=== PATIENT | female | born 1990 | race Two or more races ===

== ENCOUNTER 2018-05-03 20:43 | Emergency (ER) | payer OTHER ==
[2018-05-03 20:52] VITALS: BP 147/105; PULSE 90; TEMP 98.2; BMI 32.5
[2018-05-03] MEDS ORDERED: ACETAMINOPHEN 325 MG TABLET (FP) PO ONE (21:33)
[2018-05-03] MEDS ORDERED: ACETAMINOPHEN 325 MG TABLET (FP) ONE (21:37)
[2018-05-03] MEDS ORDERED: IBUPROFEN 400 MG TABLET (FP) PO ONE ×2 (22:08→22:12)
--- NOTE | 2018-05-03 22:29 | PDOC ---
History of Present Illness - General Chief Complaint: Injury Stated Complaint: ANKLE PAIN Time Seen by Provider: 05/03/18 20:53 History Source: Patient Exam Limitations: No Limitations Past History - Past Medical History Allergies/Adverse Reactions: Allergies Allergy/AdvReac Type Severity Reaction Status Date / Time Penicillins Allergy Verified 05/03/18 20:52 Home Medications: Ambulatory Orders Crutch 1 each MC DAILY #1 each 05/03/18 COPD: No - Reproductive History (#): 1 Para: 0 - Suicide/Smoking/Psychosocial Hx Smoking History: Never smoked Have you smoked in the past 12 months: No Information on smoking cessation initiated: No Hx Alcohol Use: No Drug/Substance Use Hx: No Substance Use Type: None *Physical Exam - Vital Signs Last Vital Signs Temp Pulse Resp BP Pulse Ox 98.2 F 90 16 147/105 H 100 05/03/18 20:50 05/03/18 20:50 05/03/18 20:50 05/03/18 20:50 05/03/18 20:50 - Physical Exam General Appearance: No: Apparent Distress Respiratory/Chest: positive: Lungs Clear, Normal Breath Sounds. negative: Respiratory Distress Cardiovascular: positive: Regular Rhythm, Regular Rate, S1, S2. negative: Murmur Musculoskeletal: positive: Decreased Range of Motion, Other (+Swelling along R lateral malleolus with TTP along site, no ecchymosis, pulses intact RLE, normal skin color) Extremity: positive: Normal Capillary Refill Integumentary: positive: Normal Color Moderate Sedation - Procedure Monitoring Vital Signs: Procedure Monitoring Vital Signs Temperature 98.2 F 05/03/18 20:50 Pulse Rate 90 05/03/18 20:50 Respiratory Rate 16 05/03/18 20:50 Blood Pressure 147/105 H 05/03/18 20:50 O2 Sat by Pulse Oximetry (%) 100 05/03/18 20:50 ED Treatment Course - ADDITIONAL ORDERS Additional order review: Laboratory Results 05/03/18 12:19 Urine HCG, Qual Negative - RADIOLOGY Radiology Studies Ordered: Category Date Time Status ANKLE & FOOT-RIGHT* [RAD] Stat Radiology 05/03/18 21:39 Taken - Medications Given in the ED: ED Medications Discontinued Medications Generic Name Dose Route Start Last Admin Trade Name Freq PRN Reason Stop Dose Admin Acetaminophen 650 mg 05/03/18 21:33 05/03/18 21:43 Tylenol - PO 05/03/18 21:34 650 mg ONCE ONE Administration Ibuprofen 800 mg 05/03/18 22:08 05/03/18 22:13 Motrin - PO 05/03/18 22:09 800 mg ONCE ONE Administration Medical Decision Making - Medical Decision Making 27 y/o F presents s/p twisting her R ankle while getting her foot caught in a hole in the road. Denies head/neck trauma, LOC, numbness/tingling. R ankle/foot xrays reviewed with no fracture noted RLE neurovascularly intact Airsplint applied Referred to ortho Stable for d/c 05/03/18 22:23 *DC/Admit/Observation/Transfer Diagnosis at time of Disposition: Right ankle sprain - Discharge Dispostion Disposition: HOME Condition at time of disposition: Stable Decision to Admit order: No - Prescriptions Prescriptions: Crutch 1 each MC DAILY #1 each - Referrals Referrals: Yoan Salomon MD [Primary Care Provider] - 3 days Noel Guevara MD [Staff Physician] - 3 days - Patient Instructions Printed Discharge Instructions: DI for Ankle Sprain Additional Instructions: Thank you for choosing [facility]. It was a pleasure taking care of you. No fracture was noted in your imaging You may take Motrin 600 mg every 4 hours by mouth as needed for mild to moderate pain. Take Motrin with food. Recommend rest, ice and keeping leg elevated (above level of heart) to help decrease swelling. Use cool compresses for the first 48 hours after the injury. Return to the Emergency Department if your symptoms worsen or persist, you have fever, change in color of extremities, unable to feel extremities or other concerning symptoms. - Post Discharge Activity
== END 2018-05-03 22:33 | disposition home or self-care (01) ==
LOC: JERFT 20:43
DX: S93.401A Sprain of unspecified ligament of right ankle, initial encounter (principal); X58.XXXA Exposure to other specified factors, initial encounter; Y93.89 Activity, other specified; Y92.89 Other specified places as the place of occurrence of the external cause
CPT/HCPCS: 73610-TC-RT-FY; 73630-TC-RT-FY; 84703; 99281-25

== ENCOUNTER 2018-09-16 18:36 | Emergency (ER) | payer SELFPAY ==
[2018-09-16 18:43] VITALS: TEMP 98; BMI 35.9
--- NOTE | 2018-09-16 20:25 | PDOC ---
History of Present Illness - General Chief Complaint: Blood Pressure Problem Stated Complaint: HIGH BLOOD PRESSURE Time Seen by Provider: 09/16/18 20:10 History Source: Patient Exam Limitations: No Limitations Past History - Travel Traveled outside of the country in the last 30 days: No Close contact w/someone who was outside of country & ill: No - Past Medical History Allergies/Adverse Reactions: Allergies Allergy/AdvReac Type Severity Reaction Status Date / Time Penicillins Allergy Verified 09/16/18 18:43 Home Medications: Ambulatory Orders Propranolol HCl 10 mg PO ASDIR 09/16/18 COPD: No HTN: Yes (newly dx) - Reproductive History (#): 1 Para: 0 - Suicide/Smoking/Psychosocial Hx Smoking History: Never smoked Have you smoked in the past 12 months: No Information on smoking cessation initiated: No Hx Alcohol Use: No Drug/Substance Use Hx: No Substance Use Type: None Review of Systems - Review of Systems Able to Perform ROS?: Yes Comments:: 09/16/18 21:43 CONSTITUTIONAL: Absent: fever, chills, diaphoresis, generalized weakness, malaise, loss of appetite HEENT: Absent: rhinorrhea, nasal congestion, throat pain, throat swelling, difficulty swallowing, mouth swelling, ear pain, eye pain, visual Changes CARDIOVASCULAR: Present: chest tightness Absent: loss of consciousness, palpitations, irregular heart rate, peripheral edema RESPIRATORY: Absent: cough, shortness of breath, dyspnea with exertion, orthopnea, wheezing, stridor, hemoptysis GASTROINTESTINAL: Absent: abdominal pain, abdominal distension, nausea, vomiting, diarrhea, constipation, melena, hematochezia GENITOURINARY: Absent: dysuria, frequency, urgency, hesitancy, hematuria, flank pain, genital pain MUSCULOSKELETAL: Absent: myalgia, arthralgia, joint swelling SKIN: Absent: rash, itching, pallor HEMATOLOGIC/IMMUNOLOGIC: Absent: easy bleeding, easy bruising, lymphadenopathy, frequent infections ENDOCRINE: Absent: unexplained weight gain, unexplained weight loss, heat intolerance, cold intolerance NEUROLOGIC: Absent: headache, focal weakness or paresthesias, dizziness, unsteady gait, seizure, mental status changes, bladder or bowel incontinence PSYCHIATRIC: Absent: anxiety, depression, suicidal or homicidal ideation, hallucinations. Is the patient limited French proficient: No *Physical Exam - Vital Signs Last Vital Signs Temp Pulse Resp BP Pulse Ox 98 F 75 18 162/109 H 100 04/24/19 18:41 09/16/18 18:41 09/16/18 18:41 09/16/18 18:41 09/16/18 18:41 - Physical Exam Comments: 09/16/18 21:44 GENERAL: Well developed, well nourished. Awake and alert. No acute distress. HEENT: Normocephalic, atraumatic. PERRLA, EOMI. No conjunctival pallor. Sclera are non- icteric. Moist mucous membranes. Oropharynx is clear. NECK: Supple. Full ROM. No JVD. Carotid pulses 2+ and symmetric, without bruits. No thyromegaly. No lymphadenopathy. CARDIOVASCULAR: Regular rate and rhythm. No murmurs, rubs, or gallops. Distal pulses are 2+ and symmetric. PULMONARY: No evidence of respiratory distress. Lungs clear to auscultation bilaterally. No wheezing, rales or rhonchi. ABDOMINAL: Soft. Non-tender. Non-distended. No rebound or guarding. No organomegaly. Normoactive bowel sounds. MUSCULOSKELETAL Normal range of motion at all joints. No bony deformities or tenderness. No CVA tenderness. EXTREMITIES: No cyanosis. No clubbing. No edema. No calf tenderness. SKIN: Warm and dry. Normal capillary refill. No rashes. No jaundice. NEUROLOGICAL: Alert, awake, appropriate. Cranial nerves 2-12 intact. No deficits to light touch and temperature in face, upper extremities and lower extremities. No motor deficits in the in face, upper extremities and lower extremities. Normoreflexic in the upper and lower extremities. Normal speech. Toes are down- going bilaterally. Gait is normal without ataxia. PSYCHIATRIC: Cooperative. Good eye contact. Appropriate mood and affect. ED Treatment Course - LABORATORY CBC & Chemistry Diagram: 09/16/18 21:12 09/16/18 21:12 Medical Decision Making - Medical Decision Making 09/16/18 21:44 The patient is a 28 y/o F with no PMH who presents to the ED for chest tightness for three days. [facility] Diagnosis at time of Disposition: Atypical chest pain - Discharge Dispostion Disposition: HOME Condition at time of disposition: Stable Decision to Admit order: No - Referrals Referrals: Yoan Salomon MD [Primary Care Provider] - Param Soto MD [Staff Physician] - - Patient Instructions Printed Discharge Instructions: DI for High Blood Pressure, DI for Atypical Chest Pain Additional Instructions: You were evaluated for your chest tightness today Your EKG and Lab work was normal. Take the propranolol as previously prescribed Follow up with your primary care doctor this week Return to the ER for worsening chest pain, shortness of breath, difficulty breathing or if you have any changes in your symptoms - Post Discharge Activity Forms/Work/School Notes: Back to Work
[2018-09-16 20:26] VITALS: BP 139/95; PULSE 78
[2018-09-16] MEDS ORDERED: ALPRAZolam 0.25 MG TABLET PO ONE (20:53)
[2018-09-16] MEDS ORDERED: SODIUM CHLORIDE 1,000 ML IV STA (20:54)
[2018-09-16] MEDS ORDERED: ALPRAZolam 0.25 MG TABLET ONE (21:23)
[2018-09-16 21:29] LABS: BASO % 1.4 % (0-2.0); EOS % 2.9 % (0-4.5); HEMATOCRIT 39.4 % (32.4-45.2); HEMOGLOBIN 12.7 GM/dL (10.7-15.3); LYMPH % 24.5 % (8-40); MCH 23.9 pg (25.7-33.7); MCHC 32.2 g/dl (32.0-36.0); MEAN CELL VOLUME 74.2 fl (80-96); MONO % 5.1 % (3.8-10.2); NEUT % 66.1 % (42.8-82.8); PLATELET COUNT 213 K/MM3 (134-434); RDW 15.4 % (11.6-15.6); WHITE BLOOD COUNT 7.6 K/mm3 (4.0-10.0)
[2018-09-16 21:58] LABS: INR 0.97 (0.83-1.09); PROTHROMBIN TIME (PATIENT) 11.5 SEC (9.7-13.0)
[2018-09-16 22:20] LABS: ALBUMIN 3.7 g/dl (3.4-5.0); ALK PHOS 105 U/L (45-117); ANION GAP 6 MMOL/L (8-16); BILIRUBIN,TOTAL 0.2 mg/dL (0.2-1); BLOOD UREA NITROGEN 10 mg/dL (7-18); CALCIUM 9.4 mg/dL (8.5-10.1); CHLORIDE 104 mmol/L (98-107); CO2 27 mmol/L (21-32); CREATININE 0.9 mg/dL (0.55-1.3); GLUCOSE,RANDOM 90 mg/dL (74-106); POTASSIUM 4.1 mmol/L (3.5-5.1); SGOT/AST 21 U/L (15-37); SGPT/ALT 30 U/L (13-61); SODIUM 138 mmol/L (136-145); TOT PROT 7.9 g/dl (6.4-8.2)
--- NOTE | 2018-09-17 12:07 | EKG ---
Test Reason : Blood Pressure : / mmHG Vent. Rate : 085 BPM Atrial Rate : 085 BPM P-R Int : 162 ms QRS Dur : 074 ms QT Int : 340 ms P-R-T Axes : 043 057 029 degrees QTc Int : 404 ms NORMAL SINUS RHYTHM NORMAL ECG WHEN COMPARED WITH ECG OF 11-SEP-2008 01:31, NO SIGNIFICANT CHANGE WAS FOUND Confirmed by MAGED PARRA MD ([id number]) on 09/17/2018 12:06:44 PM Referred By: Confirmed By:MAGED PARRA MD
== END 2018-09-16 23:31 | disposition home or self-care (01) ==
LOC: JER 18:36
PROC: 3E0337Z Introduction of Electrolytic and Water Balance Substance into Peripheral Vein, Percutaneous Approach (ICD-10-PCS; principal; 2018-09-16)
DX: R07.89 Other chest pain (principal); I10 Essential (primary) hypertension
CPT/HCPCS: 36415; 80053; 82550; 82553; 84443; 84484; 85025; 85379; 85610; 93005; 93010; 99282-25; J7030

== ENCOUNTER 2018-10-14 15:31 | Emergency (ER) | payer SELFPAY ==
--- NOTE | 2018-10-14 15:37 | PDOC ---
Rapid Medical Evaluation Time Seen by Provider: 10/14/18 15:34 Medical Evaluation: Allergies Allergy/AdvReac Type Severity Reaction Status Date / Time Penicillins Allergy Verified 09/16/18 18:43 10/14/18 15:34 I have performed a brief in-person evaluation of this patient. The patient presents with a chief complaint of: "feel like i'm about to pass out " lightheaded, palpitations, recent dx of anxiety and HTN, took half her dose of propanolol yesterday "because the side effects are horrible", had similar symptoms a couple weeks ago, seen here and at [facility], [facility] 10/02 Pertinent physical exam findings: well appearing, no focal deficits, lungs ctab I have ordered the following: ekg, labs The patient will proceed to the ED for further evaluation.
[2018-10-14 15:39] VITALS: BMI 36.8
[2018-10-14] MEDS ORDERED: SODIUM CHLORIDE 0.9% 1000 ML INFUS.BAG IV ONE (16:30)
[2018-10-14 16:55] LABS: BASO % 0.8 % (0-2.0); EOS % 2.3 % (0-4.5); HEMATOCRIT 38.6 % (32.4-45.2); LYMPH % 29.3 % (8-40); MCH 23.3 pg (25.7-33.7); MCHC 31.1 g/dl (32.0-36.0); MEAN CELL VOLUME 74.8 fl (80-96); MEAN PLT VOLUME 9.6 fl (7.5-11.1); MONO % 5.4 % (3.8-10.2); NEUT % 62.2 % (42.8-82.8); PLATELET COUNT 201 K/MM3 (134-434); RBC 5.16 M/mm3 (3.60-5.2); RDW 14.7 % (11.6-15.6); WHITE BLOOD COUNT 5.6 K/mm3 (4.0-10.0)
--- NOTE | 2018-10-14 16:58 | PDOC ---
History of Present Illness - General Chief Complaint: Lightheaded Stated Complaint: WEAKNESS / LIGHTHEADED Time Seen by Provider: 10/14/18 15:34 History Source: Patient Exam Limitations: No Limitations - History of Present Illness Initial Comments: 10/14/18 16:47 28 yo female PMH HTN and anxiety presents to the ED with 1 day of elevated BP, CP and lightheadedness. Pt does not have insurance at the moment, has not been able to see PCP so admits to going to [facility] and [facility] for recent complaints of described as same quality and intensity of todays episode. Pt had multiple normal cardiac work ups and told it is likely anxiety. Pt states insurance will start 10/16 and will have a PCP. ER Doctor nidhi Phoenix gave pt 1 month of 10 mg propanolol however, pt states the medication makes her feel light headed Pt admits to sudden onset CP that began while typing at work. Pain described as pressure, intermittent, made worse on exertion, with associated left arm weakness and lightheadedness/confusion. Denies GHOSH, LOC, changes in vision, weakness on 1 side of her body Past History - Past Medical History Allergies/Adverse Reactions: Allergies Allergy/AdvReac Type Severity Reaction Status Date / Time Penicillins Allergy Hives Verified 10/14/18 16:51 shellfish derived Allergy Vomiting Verified 10/14/18 16:51 Home Medications: Ambulatory Orders Propranolol HCl 10 mg PO DAILY 09/16/18 COPD: No HTN: Yes (newly dx) Psychiatric Problems: Yes (anxiety) - Reproductive History (#): 1 Para: 0 - Suicide/Smoking/Psychosocial Hx Smoking History: Never smoked Have you smoked in the past 12 months: No Information on smoking cessation initiated: No Hx Alcohol Use: No Drug/Substance Use Hx: No Substance Use Type: None *Physical Exam - Vital Signs Last Vital Signs Temp Pulse Resp BP Pulse Ox 99.1 F 121 H 20 164/104 H 100 10/14/18 15:35 10/14/18 15:35 10/14/18 15:35 10/14/18 15:35 10/14/18 15:35 ED Treatment Course - LABORATORY CBC & Chemistry Diagram: 10/14/18 16:25 10/14/18 16:25 *DC/Admit/Observation/Transfer Diagnosis at time of Disposition: Anxiety, Chest pain - Discharge Dispostion Disposition: HOME Condition at time of disposition: Stable Decision to Admit order: No - Referrals - Patient Instructions Printed Discharge Instructions: DI for Atypical Chest Pain Additional Instructions: Please see your Primary Doctor tomorrow. Take your medication for elevated blood pressure as prescribed. Return to the ER for new or concerning symptoms including but not limited to: severe chest pain, difficulty breathing, high fevers. Thank you - Post Discharge Activity
[2018-10-14 17:16] LABS: ALBUMIN 3.8 g/dl (3.4-5.0); ALK PHOS 91 U/L (45-117); ANION GAP 6 MMOL/L (8-16); BILIRUBIN,TOTAL 0.2 mg/dL (0.2-1); BLOOD UREA NITROGEN 8 mg/dL (7-18); CHLORIDE 106 mmol/L (98-107); CO2 26 mmol/L (21-32); CREATININE 0.9 mg/dL (0.55-1.3); GLUCOSE,RANDOM 90 mg/dL (74-106); POTASSIUM 4.1 mmol/L (3.5-5.1); SGOT/AST 19 U/L (15-37); SGPT/ALT 31 U/L (13-61); SODIUM 138 mmol/L (136-145); TOT PROT 7.5 g/dl (6.4-8.2)
[2018-10-14 17:24] LABS: PH,URINE 6.5 (5.0-8.0); URINE APPEARANCE CLEAR; URINE BILIRUBIN NEGATIVE (NEGATIVE); URINE COLOR YELLOW; URINE GLUCOSE (UA) NEGATIVE (NEGATIVE); URINE KETONE NEGATIVE (NEGATIVE); URINE LEUK ESTERASE NEGATIVE (NEGATIVE); URINE NITRITE NEGATIVE (NEGATIVE); URINE PROTEIN NEGATIVE (NEGATIVE); URINE UROBILINOGEN 0.2 mg/dL (0.2-1.0)
[2018-10-14 21:30] VITALS: BP 141/99; PULSE 82; TEMP 98.2
--- NOTE | 2018-10-15 09:56 | PDOC ---
Documentation entered by Meet Lorenzana SCRIBE, acting as scribe for Teresa Hutchinson MD. Teresa Hutchinson MD: This documentation has been prepared by the Harriett saleem Nirvannie, SCRIBE, under my direction and personally reviewed by me in its entirety. I confirm that the documentation accurately reflects all work, treatment, procedures, and medical decision making performed by me. Attending Attestation - Resident Resident Name: [facility] - ED Attending Attestation I have performed the following: I have examined & evaluated the patient, The case was reviewed & discussed with the resident, I agree w/resident's findings & plan - HPI HPI: 10/14/18 18:41 The patient is a 28 year old female, with a significant past medical history of HTN and anxiety, who presents to the emergency department with, 1 day of elevated blood pressure, chest pain, lightheadedness, and numbness. Patient has been evaluated at [facility] and [facility] ER for similar symptoms. She notes she has recently been without medical insurance and will have it reinstated soon. She denies recent nausea, vomit, diarrhea or constipation. She denies recent dysuria, frequency, urgency or hematuria. Allergies: Penicillins. Shellfish - Physicial Exam PE: 10/14/18 18:41 GENERAL: The patient is in no acute distress. HEAD: Normal with no signs of trauma. EYES: PERRLA, EOMI, sclera anicteric, conjunctiva clear. ENT: Ears normal, nares patent, oropharynx clear without exudates. Moist mucous membranes. NECK: Normal range of motion, supple without lymphadenopathy, JVD, or masses. LUNGS: Breath sounds equal, clear to auscultation bilaterally. No wheezes, and no crackles. HEART:Regular rate and rhythm, normal S1 and S2 without murmur, rub or gallop. ABDOMEN: Soft, nontender, normoactive bowel sounds. No guarding, no rebound. No masses palpable. EXTREMITIES: Normal range of motion, no edema. No clubbing or cyanosis. No erythema, or tenderness. NEUROLOGICAL: Cranial nerves II through XII grossly intact. Normal speech. No focal neurological deficits. MUSCULOSKELETAL: Back non-tender to palpation, no CVA tenderness SKIN: Warm, Dry, normal turgor, no rashes or lesions noted. - Medical Decision Making 10/14/18 18:06 Laboratory Tests 10/14/18 10/14/18 16:25 16:25 WBC 5.6 Hgb 12.0 MCV 74.8 L Plt Count 201 Creatine Kinase 253 H Troponin I < 0.02
--- NOTE | 2018-10-15 13:15 | EKG ---
Test Reason : Blood Pressure : / mmHG Vent. Rate : 096 BPM Atrial Rate : 096 BPM P-R Int : 166 ms QRS Dur : 074 ms QT Int : 336 ms P-R-T Axes : 042 010 020 degrees QTc Int : 424 ms NORMAL SINUS RHYTHM WITH SINUS ARRHYTHMIA POSSIBLE LEFT ATRIAL ENLARGEMENT BORDERLINE ECG WHEN COMPARED WITH ECG OF 16-SEP-2018 18:36, NO SIGNIFICANT CHANGE WAS FOUND Confirmed by MAGED PARRA MD ([id number]) on 10/15/2018 1:14:45 PM Referred By: Confirmed By:MAGED PARRA MD
== END 2018-10-14 21:31 | disposition home or self-care (01) ==
LOC: JER 15:31
PROC: 3E0337Z Introduction of Electrolytic and Water Balance Substance into Peripheral Vein, Percutaneous Approach (ICD-10-PCS; principal; 2018-10-14)
DX: F41.9 Anxiety disorder, unspecified (principal); R07.9 Chest pain, unspecified
CPT/HCPCS: 36415; 70450-TC; 71046-TC-FY; 80053; 81003; 82550; 82553; 84484; 84703; 85025; 87086; 93005; 93010; 99282-25; J7030

== ENCOUNTER 2019-02-23 02:46 | Emergency (ER) | payer OTHER ==
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
[2019-02-23] MEDS ORDERED: CYCLOBENZAPRINE HCL 10 MG TABLET (FP) PO ONE (04:14)
[2019-02-23] MEDS ORDERED: LIDOCAINE 5% TOPICAL PATCH TP ONE (04:14)
[2019-02-23] MEDS ORDERED: DIPHTH,PERTUSS(ACELL),TET 0.5 ML DISP.SYRIN IM ONE (04:14)
[2019-02-23] MEDS ORDERED: LIDOCAINE 5% TOPICAL PATCH ONE (04:17)
[2019-02-23] MEDS ORDERED: CYCLOBENZAPRINE HCL 10 MG TABLET (FP) ONE (04:17)
[2019-02-23 04:51] VITALS: BMI 34.3
[2019-02-23] MEDS ORDERED: BACITRACIN 15 GM TUBE TOPICAL OINTMENT TP ONE (05:50)
[2019-02-23 08:09] VITALS: BP 135/88; PULSE 83; TEMP 98.1
[2019-02-23] MEDS ORDERED: LIDOCAINE PATCH REMOVAL MC SCH (22:00)
== END 2019-02-23 08:13 | disposition home or self-care (01) ==
LOC: JER 02:46
DX: M54.6 Pain in thoracic spine (principal); M54.2 Cervicalgia; V43.52XA Car driver injured in collision with other type car in traffic accident, initial encounter; Y92.414 Local residential or business street as the place of occurrence of the external cause; Y93.89 Activity, other specified; Y99.8 Other external cause status; I10 Essential (primary) hypertension; F41.9 Anxiety disorder, unspecified; Z88.0 Allergy status to penicillin; Z91.013 Allergy to seafood
CPT/HCPCS: 70450-TC; 71046-TC-FY; 72070-TC-FY; 72125-TC; 84703; 90715; 99282-25

== ENCOUNTER 2019-05-12 05:03 | Inpatient (IN) | payer OTHER ==
[2019-05-11 11:16] VITALS: BMI 35.3
--- NOTE | 2019-05-12 15:02 | HP ---
History & Physical Update - History History: No Change - Physical Physical: No Change - Assessment Assessment: No Change - Plan Plan: No Change
[2019-05-12] MEDS ORDERED: BUPIVACAINE HCL/PF 0.5% (5 MG/ML) 30 ML VIAL IJ ONE (15:51)
[2019-05-12] MEDS ORDERED: BUPIVACAINE LIPOSOME/PF (EXPAREL) 266 MG/20 ML VIAL ONE (16:10)
[2019-05-12] MEDS ORDERED: ACETAMINOPHEN 325 MG TABLET (FP) PO PRN (16:36)
[2019-05-12] MEDS ORDERED: ONDANSETRON 4 MG/2 ML VIAL IVPUSH PRN (16:36)
[2019-05-12] MEDS ORDERED: oxyCODONE HCL 5 MG TABLET PO PRN (16:36)
[2019-05-12] MEDS ORDERED: MIDAZOLAM HCL 2 MG/2 ML SINGLE DOSE VIAL ONE ×2 (16:46)
[2019-05-12] MEDS ORDERED: fentaNYL CITRATE 250 MCG/5 ML VIAL ONE (17:13)
[2019-05-12] MEDS ORDERED: CLINDAMYCIN 900 MG PREMIX BAG IVPB ONE (18:00)
[2019-05-12] MEDS ORDERED: HYDROmorphone HCl 2 MG/ML VIAL ONE (18:40)
[2019-05-12] MEDS ORDERED: NEOSTIGMINE METHYLSULFATE 0.5 MG/1 ML - 10 ML MDV ONE ×2 (19:05)
[2019-05-12] MEDS ORDERED: IBUPROFEN 800 MG/8 ML IJ IVPB PRN (19:33)
[2019-05-12] MEDS ORDERED: HYDROmorphone *PCA* 10MG/50ML DISP.SYRIN ONE (19:36)
[2019-05-12] MEDS ORDERED: SUCCINYLCHOLINE CHLORIDE 200 MG/10 ML SYRINGE ONE (19:37)
--- NOTE | 2019-05-12 19:38 | OP ---
Operative Note - Note: Operative Date: 05/12/19 Pre-Operative Diagnosis: fibroid uterus, pelvic pain, infertility Operation: abdominal myomectomy via pfannensteil incision Findings: ~ 7 cm anterior fibroid; normal tubes and ovaries bilaterally Post-Operative Diagnosis: Same as Pre-op Surgeon: Elissa Song Woodwork Teacher: Delgado Olmstead Anesthesiologist/SECONDARY SCHOOL REGISTRAR: Krista Lara Anesthesia: General Specimens Removed: fibroid Estimated Blood Loss (mls): 100 Drains, Volume Out (mls): 100 (clear urine) Fluid Volume Replaced (mls): 1,500 Operative Report Dictated: Yes
[2019-05-12] MEDS ORDERED: HYDROmorphone *PCA* 10MG/50ML DISP.SYRIN PCA SCH (19:45)
[2019-05-12] MEDS ORDERED: ACETAMINOPHEN INJECTION 100 ML IVPB ONE (20:38)
[2019-05-12] MEDS: ACETAMINOPHEN 1000 MG/100 ML VIAL (NON FORMULARY) IVPB SCH (20:44)
[2019-05-12] MEDS: LACTATED RINGERS SOLUTION 1,000 ML IV SCH (21:00)
--- NOTE | 2019-05-13 00:16 | OP ---
DATE OF OPERATION: 05/12/2019 ATTENDING PHYSICIAN: Elissa Song M.D. PREOPERATIVE DIAGNOSIS: Fibroid uterus, pelvic pain, and infertility. POSTOPERATIVE DIAGNOSIS: Fibroid uterus, pelvic pain, and infertility. SURGERY: Abdominal myomectomy via Pfannenstiel skin incision. SURGEON: Elissa Song M.D. WEB PRESS OPERATOR ASSISTANT: Delgado Olmstead M.D. ANESTHESIOLOGIST: ESTIMATED BLOOD LOSS: 100. FLUIDS GIVEN: 1500. URINE OUTPUT: 100 clear yellow fluid at the end of the case. INDICATION: Patient is a 28-year-old with a history of infertility, pelvic pain, and a fibroid uterus desiring surgical management. She was counseled regarding risks, benefits, alternatives, and complications to procedure including infection, bleeding, damage to surrounding organs. She expressed understanding, was brought to the operating room. DESCRIPTION OF PROCEDURE: When anesthesia was found to be adequate, patient was prepped and draped in normal sterile fashion. Placed in dorsal supine position. A 10-cm skin incision was made approximately 2 cm above the suprapubic bone and carried down to the underlying rectus fascia using the Bovie electrocautery. The fascia was nicked in midline, extended laterally using electrocautery. The inferior portion of the fascial incision was tented up using Cristela clamp, dissected off the underlying rectus muscle using Briggs scissors. Attention was brought to superior portion where in similar fashion was tented up using Cristela clamps, dissected off following underlying rectus muscles using Bovie electrocautery. A mild diastasis was noted. Muscles in the midline, peritoneum was entered sharply. Fibroid uterus was palpated. The uterus was exteriorized. Tourniquet was placed in the lower uterine segment with care not to involve the bowel and the ovaries and tubes. Vasopressin was then injected subserosally. An incision was made along the anterior fibroid. This was shelled out and removed and sent to pathology. The uterine defect was then repaired in 3 layers of 2-0 Vicryl and the top layer, the serosal layer was closed using 3-0 Biosyn in a baseball stitch. Tourniquet was then removed and good hemostasis was achieved using [id number] stitches . The uterus was returned into the abdominal cavity. Copious irrigation was performed. Interceed was placed over the uterine scar incision site. Bilateral tubes and ovaries are noted to be normal appearing. The peritoneum was closed using 2-0 Biosyn running fashion . The rectus muscles were reapproximated using 2-0 Biosyn in an interrupted fashion. The fascia was closed using 0 Vicryl in a running fashion . Subcutaneous fat was closed using 2-0 Vicryl in a running fashion. The skin was reapproximated using 3-0 Vicryl. Patient tolerated the procedure well. Estimated blood loss was 100 mL. Patient was awoken from anesthesia and brought to the recovery room in stable condition. Dariana [id number]
[2019-05-13] MEDS: ACETAMINOPHEN 1000 MG/100 ML VIAL (NON FORMULARY) IVPB SCH ×3 (02:48→14:53)
[2019-05-13 08:31] LABS: HEMATOCRIT 32.4 % (32.4-45.2); HEMOGLOBIN 10.3 GM/dL (10.7-15.3); MCH 21.4 pg (25.7-33.7); MCHC 31.9 g/dl (32.0-36.0); MEAN CELL VOLUME 67.2 fl (80-96); MEAN PLT VOLUME 9.2 fl (7.5-11.1); PLATELET COUNT 244 K/MM3 (134-434); RBC 4.82 M/mm3 (3.60-5.2); RDW 16.7 % (11.6-15.6); WHITE BLOOD COUNT 10.8 K/mm3 (4.0-10.0)
--- NOTE | 2019-05-13 09:01 | PN ---
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 - Current Medications Current Medications: Active Medications Acetaminophen (Tylenol -) 650 mg PO Q4H PRN PRN Reason: Pain-PACU ORDER X 2 DOSES ONLY Acetaminophen (Ofirmev Injection -) 1,000 mg IVPB Q6H [facility] Stop: 05/13/19 13:46 Last Admin: 05/13/19 02:48 Dose: 1,000 mg Enoxaparin Sodium (Lovenox -) 40 mg SQ DAILY [facility]AL[facility] Fentanyl (Sublimaze Injection -) 50 mcg IVPUSH [id number] PRN PRN Reason: PAIN-PACU ORDER X 4 DOSES ONLY Hydromorphone HCl (Hydromorphone 10 Mg/50 Ml-Ns) 10 mg STOCK RANCH SUPERVISOR STOCK RANCH SUPERVISOR [facility]; Protocol Stop: 05/19/19 19:37 Last Admin: 05/12/19 19:40 Dose: 10 mg Lactated Ringer's (Lactated Ringers Solution) 1,000 mls @ 75 mls/hr IV ASDIR ROSALINE Last Admin: 05/12/19 21:00 Dose: 0 mls Ibuprofen (Caldolor Injection -) 600 mg IVPB Q6H PRN PRN Reason: FEVER Ondansetron HCl (Zofran Injection) 4 mg IVPUSH Q6H PRN PRN Reason: NAUSEA AND/OR VOMITING Oxycodone HCl (Roxicodone -) 5 mg PO Q4H PRN PRN Reason: PAIN LEVEL 1-5 - Objective Vital Signs: Vital Signs Temperature 98.3 F 05/13/19 05:54 Pulse Rate 107 H 05/13/19 05:54 Respiratory Rate 20 05/13/19 05:54 Blood Pressure 121/5 L 05/13/19 05:54 O2 Sat by Pulse Oximetry (%) 100 05/12/19 21:00 Constitutional: Yes: No Distress, Calm Respiratory: Yes: Regular, CTA Bilaterally Gastrointestinal: Yes: Normal Bowel Sounds, Soft Genitourinary: Yes: Vaginal Bleeding (scant, on menses ) Musculoskeletal: Yes: WNL Edema: No Wound/Incision: Yes: Dressing Dry and Intact (madhavi incisional tenderness) ...Motor Strength: Yes: WNL Psychiatric: Yes: Alert, Oriented Labs Lab Results: CBCD WBC 10.8 K/mm3 (4.0-10.0) H 05/13/19 07:25 RBC 4.82 M/mm3 (3.60-5.2) 05/13/19 07:25 Hgb 10.3 GM/dL (10.7-15.3) L 05/13/19 07:25 Hct 32.4 % (32.4-45.2) 05/13/19 07:25 MCV 67.2 fl (80-96) L 05/13/19 07:25 MCHC 31.9 g/dl (32.0-36.0) L 05/13/19 07:25 RDW 16.7 % (11.6-15.6) H 05/13/19 07:25 Plt Count 244 K/MM3 (134-434) 05/13/19 07:25 MPV 9.2 fl (7.5-11.1) 05/13/19 07:25 Assessment/Plan 28 yo POD # 1 s/p abdominal myomectomy, afebrile, vital signs stable, doing well 1. Continue routine postoperative care. 2. ID - afebrile, will continue to monitor vital signs. 3. Cardiovascular - No acute issues 4. Pulmonary - Encourage incentive spirometer 5. Hematology - Hemoglobin / Hematocrit stable. Will continue to monitor vital signs of anemia Plan to start lovenox for thromboprophylaxis today 6. Urinary - urine output adequate overnight Will DC maldonado this afternoon 7. Gastroinestinal no signs of ileus at this time Will advance diet 8. Gynecology - will follow up pathology 9. Pain - will transition to oral pain medications Will continue NSAIDs ATC, oxycodone PRN 10. Anticipate discharge home POD # 2, pending able to ambulate, adequate pain control and urinating without issue.
[2019-05-13] MEDS ORDERED: ACETAMINOPHEN 325 MG TABLET (FP) PO PRN (09:03)
--- NOTE | 2019-05-13 09:07 | PN ---
Progress Note (short form) - Note Progress Note: Anesthesia postop note 28 y/o F s/p GA/TAP blocks for abdominal myomectomy POD#1, vss, aaox3, pain well controlled, no complaints. No anesthesia complications.
[2019-05-13] MEDS: ENOXAPARIN NA (PORCINE) 40 MG/0.4 ML DISP.SYRIN SQ SCH (09:32)
[2019-05-13] MEDS: IBUPROFEN 800 MG/8 ML IJ IVPB SCH ×2 (10:53→17:19)
[2019-05-13] MEDS: IBUPROFEN 600 MG TABLET (FP) PO SCH ×2 (17:19→23:56)
[2019-05-13] MEDS: LACTATED RINGERS SOLUTION 1,000 ML IV SCH ×2 (17:19→23:57)
[2019-05-14] MEDS: IBUPROFEN 600 MG TABLET (FP) PO SCH ×2 (06:04→11:51)
--- NOTE | 2019-05-14 08:31 | PN ---
Progress Note (SOAP) - Subjective History of Present Illness: Patient without acute complaints Voiding, ambulating, passing gas Tolerating regular diet without nausea or vomiting No fevers or chills, no chest pain, shortness of breath Pain well controlled with CONTENT EDITOR Light vaginal bleeding, on menses - Current Medications Current Medications: Active Medications Acetaminophen (Tylenol -) 650 mg PO Q4H PRN PRN Reason: Pain-PACU ORDER X 2 DOSES ONLY Acetaminophen (Tylenol -) 650 mg PO Q6H PRN PRN Reason: PAIN LEVEL 1-5 Enoxaparin Sodium (Lovenox -) 40 mg SQ DAILY [facility] Last Admin: 05/13/19 09:32 Dose: 40 mg Fentanyl (Sublimaze Injection -) 50 mcg IVPUSH [id number] PRN PRN Reason: PAIN-PACU ORDER X 4 DOSES ONLY Hydromorphone HCl (Hydromorphone 10 Mg/50 Ml-Ns) 10 mg CONTENT EDITOR CONTENT EDITOR [facility]; Protocol Stop: 05/19/19 19:37 Last Admin: 05/12/19 19:40 Dose: 10 mg Lactated Ringer's (Lactated Ringers Solution) 1,000 mls @ 75 mls/hr IV ASDIR [facility] Last Admin: 05/13/19 23:57 Dose: 75 mls/hr Ibuprofen (Motrin -) 600 mg PO Q6H [facility] Last Admin: 05/14/19 06:04 Dose: 600 mg Ondansetron HCl (Zofran Injection) 4 mg IVPUSH Q6H PRN PRN Reason: NAUSEA AND/OR VOMITING Oxycodone HCl (Roxicodone -) 5 mg PO Q4H PRN PRN Reason: PAIN LEVEL 1-5 - Objective Vital Signs: Vital Signs Temperature 97.8 F 05/14/19 06:00 Pulse Rate 87 05/14/19 06:00 Respiratory Rate 20 05/14/19 06:00 Blood Pressure 125/76 05/14/19 06:00 O2 Sat by Pulse Oximetry (%) 100 05/13/19 21:00 Constitutional: Yes: Well Nourished, No Distress, Calm Cardiovascular: Yes: Regular Rate and Rhythm Respiratory: Yes: Regular, CTA Bilaterally Gastrointestinal: Yes: Normal Bowel Sounds, Soft Genitourinary: Yes: Vaginal Bleeding (light, on menses) Musculoskeletal: Yes: WNL Peripheral Pulses WNL: Yes Edema: No Wound/Incision: Yes: Clean/Dry, Well Approximated, Steri Strips ...Motor Strength: Yes: WNL Psychiatric: Yes: Alert, Oriented Labs Lab Results: CBCD WBC 10.8 K/mm3 (4.0-10.0) H 05/13/19 07:25 RBC 4.82 M/mm3 (3.60-5.2) 05/13/19 07:25 Hgb 10.3 GM/dL (10.7-15.3) L 05/13/19 07:25 Hct 32.4 % (32.4-45.2) 05/13/19 07:25 MCV 67.2 fl (80-96) L 05/13/19 07:25 MCHC 31.9 g/dl (32.0-36.0) L 05/13/19 07:25 RDW 16.7 % (11.6-15.6) H 05/13/19 07:25 Plt Count 244 K/MM3 (134-434) 05/13/19 07:25 MPV 9.2 fl (7.5-11.1) 05/13/19 07:25 Assessment/Plan 28 yo POD # 2 s/p abdominal myomectomy, afebrile, vital signs stable, doing well 1. Continue routine postoperative care. 2. ID - afebrile, will continue to monitor vital signs. 3. Cardiovascular - No acute issues 4. Pulmonary - Encourage incentive spirometer 5. Hematology - Hemoglobin / Hematocrit stable. Will continue to monitor vital signs of anemia On lovenox for thromboprophylaxis today 6. Urinary - urine output adequate overnight Will DC maldonado this afternoon 7. Gastroinestinal -tolerating regular diet 8. Gynecology - will follow up pathology 9. Pain - will DC CONTENT EDITOR, will transition to Oxycodone PRN Will continue NSAIDs ATC 10. Stable for DC home today
--- NOTE | 2019-05-14 08:36 | DS ---
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 Vital Signs: Vital Signs Temperature 97.8 F 05/14/19 06:00 Pulse Rate 87 05/14/19 06:00 Respiratory Rate 20 05/14/19 06:00 Blood Pressure 125/76 05/14/19 06:00 O2 Sat by Pulse Oximetry (%) 100 05/13/19 21:00 Labs: CBC, BMP 05/13/19 07:25 Discharge Summary Problems reviewed: Yes Reason For Visit: PELVIC PAIN/LEIOMYOMA OF UTERUS Current Active Problems Fibroids (Acute) Pelvic pain (Acute) Procedures: Principal: Myomectomy Hospital Course: POD # 1 patient ambulated, voided, passed gas, tolerated PO intake H/H and vital signs stable Fulfilled all criteria for DC home POD #2 Condition: Good - Instructions Diet, Activity, Other Instructions: Return to office in 1-2 weeks as scheduled Physical activity Resume your normal everyday activity as tolerated no heavy lifting or exercise until seen by your surgeon. You may walk unlimited denise of and climb stairs. You may resume driving the car when you feel safe and comfortable behind the wheel. No sexual activity as instructed. Wound care If you have a bandage, leave it on, and keep dry for 48-72 hours. After that time discard the outer bandage. If they are tapes on the skin under the out of bandage leave them in place. They will peel off in the next 7 to 10 days. Do Not Peel them off. You may shower the day after surgery. If there are tapes present on the skin, you may shower over them. Diet There are no dietary restrictions. Eat healthy, high-fiber foods. Drink 6 to 8 glasses of liquid each day. This will assist in keeping your bowels are regular. Pain management You may take Tylenol or acetaminophen or Ibuprofen (for example, Motrin, Advil etc.) for pain; Any prescription medication is ordered should be taken as prescribed for moderate to severe pain. Call MD for any of the following: Severe pain not relieved by medication Fever of 101 or higher Excessive bleeding or drainage on dressing Inability to urinate [facility] Reference #: [id number] Referrals: Elissa Song MD [Staff Physician] - Disposition: HOME - Home Medications Comprehensive Discharge Medication List: Ambulatory Orders Ibuprofen [Motrin -] 600 mg PO QID #30 tablet 05/14/19 Oxycodone HCl/Acetaminophen [Percocet 5-325 mg Tablet] 1 tab PO Q6H #14 tablet MDD 4 05/14/19 Prescription Drug Monitoring Program (I-STOP) results: I-STOP reviewed and no issues identified
--- NOTE | 2019-05-14 08:53 | PN ---
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
[2019-05-14] MEDS ORDERED: oxyCODONE HCL 5 MG TABLET PO PRN ×2 (08:54)
[2019-05-14 09:00] VITALS: BP 137/95; PULSE 84; TEMP 98.1
[2019-05-14] MEDS: ENOXAPARIN NA (PORCINE) 40 MG/0.4 ML DISP.SYRIN SQ SCH (09:44)
--- NOTE | 2019-05-17 16:13 | PATH ---
Surgical Pathology Report Patient Name: CHARAN NAGY Med. Rec. #: [id number] /Age/Gender: 1990 (Age: 28) / F Account: [id number] Location: [address] [place] [address]/[facility] Taken: 05/12/2019 Received: 05/13/2019 Reported: 05/17/2019 Physicians: Elissa Song Specimen(s) Received FIBROID Clinical History Pelvic pain, leiomyoma of uterus Final Diagnosis FIBROID, ABDOMINAL MYOMECTOMY: 80 G, LEIOMYOMA. Electronically Signed Yael Rosen M.D. Gross Description Received in formalin labeled "fibroid," is an 80 g, is a 6.0 x 5.0 x 4.5 cm neville, rubbery nodule, consistent with a fibroid. The cut surface reveals neville, rubbery parenchyma with whorled architecture. No areas of hemorrhage or necrosis are identified. Instructor Looping sections are submitted in 3 cassettes. /05/14/2019 [facility]/05/14/2019
== END 2019-05-14 13:23 | disposition home or self-care (01) | DRG 743 ==
LOC: JSAMEDAYSX 05:03 → J6S 21:24
PROVIDERS: ADMIT Obstetrics & Gynecology; ATTEND Obstetrics & Gynecology
PROC: 0UB90ZZ Excision of Uterus, Open Approach (ICD-10-PCS; principal; 2019-05-12 16:00)
DX: D25.9 Leiomyoma of uterus, unspecified (principal); R10.2 Pelvic and perineal pain; N97.9 Female infertility, unspecified
CPT/HCPCS: 36415; 82962; 84703; 85027; 86850; 86900; 86901; 88305-TC; 94760; J0131

== ENCOUNTER 2020-06-13 16:54 | Emergency (ER) | payer OTHER ==
[2020-06-13 17:05] VITALS: BP 147/60; PULSE 117; TEMP 98.4; BMI 33.5
== END 2020-06-13 20:44 | disposition home or self-care (01) ==
LOC: JER 16:54
DX: R05 Cough (principal); Z11.52 Encounter for screening for COVID-19
CPT/HCPCS: 71046-TC-FY; 99284-25; C9803; U0003

== ENCOUNTER → 2021-12-26 | Emergency (ER) | payer OTHER ==
[2021-12-26 16:36] VITALS: BP 130/93; PULSE 114; RESP 18; TEMP 98; BMI 36.3
== END ==
LOC: JER 16:29
DX: R00.2 Palpitations (principal)
CPT/HCPCS: 93005; 93010; 99283-25

== ENCOUNTER 2023-05-28 14:26 | Emergency (ER) | payer OTHER ==
[2023-05-28 14:48] VITALS: RESP 18; BMI 36.8
[2023-05-28] MEDS ORDERED: SODIUM CHLORIDE 0.9% 500 ML INFUS.BAG IV ONE (16:56)
[2023-05-28 17:33] LABS: BASO % 0.5 % (0-2.0); EOS % 0.9 % (0-4.5); HEMATOCRIT 40.6 % (32.4-45.2); HEMOGLOBIN 12.7 GM/dL (10.7-15.3); LYMPH % 28.5 % (8-40); MCH 22.7 pg (25.7-33.7); MCHC 31.3 g/dl (32.0-36.0); MEAN CELL VOLUME 72.3 fl (80-96); MEAN PLT VOLUME 8.6 fl (7.5-11.1); MONO % 4.7 % (3.8-10.2); NEUT % 65.4 % (42.8-82.8); PLATELET COUNT 275 10^3/uL (134-434); RBC 5.61 M/mm3 (3.60-5.2); RDW 14.8 % (11.6-15.6); WHITE BLOOD COUNT 5.8 K/mm3 (4.0-10.0)
[2023-05-28 17:59] LABS: POTASSIUM 4.3 mmol/L (3.5-5.1)
[2023-05-28 18:01] LABS: ALBUMIN 3.6 g/dl (3.4-5.0); CALCIUM 10.1 mg/dL (8.5-10.1)
[2023-05-28 18:02] LABS: BLOOD UREA NITROGEN 9.8 mg/dL (7-18)
[2023-05-28 18:04] LABS: CREATININE 0.9 mg/dL (0.55-1.3)
[2023-05-28 18:06] LABS: TOT PROT 8.2 g/dl (6.4-8.2)
[2023-05-28 18:07] LABS: BILIRUBIN,TOTAL 0.2 mg/dL (0.2-1)
[2023-05-28 18:41] LABS: URINE APPEARANCE CLEAR; URINE BILIRUBIN NEGATIVE (NEGATIVE); URINE COLOR YELLOW; URINE GLUCOSE (UA) NEGATIVE (NEGATIVE); URINE KETONE NEGATIVE (NEGATIVE); URINE LEUK ESTERASE NEGATIVE (NEGATIVE); URINE NITRITE NEGATIVE (NEGATIVE); URINE PROTEIN NEGATIVE (NEGATIVE); URINE UROBILINOGEN 0.2 mg/dL (0.2-1.0)
[2023-05-28 19:42] VITALS: BP 146/99; PULSE 78; TEMP 99.1
== END 2023-05-28 19:44 | disposition home or self-care (01) ==
LOC: JER 14:26
DX: R42 Dizziness and giddiness (principal); R11.2 Nausea with vomiting, unspecified; R51.9 Headache, unspecified; Z20.822 Contact with and (suspected) exposure to COVID-19
CPT/HCPCS: 0241U-QW; 36415; 71045-TC-FY; 80053; 81003; 84484; 84703; 85025; 86850; 86900; 86901; 87086; 93005; 93010; 99285-25

== ENCOUNTER 2024-09-26 00:42 | Emergency (ER) | payer OTHER ==
[2024-09-26 00:52] VITALS: BP 130/94; PULSE 104; RESP 26; TEMP 99.3; BMI 40.1
[2024-09-26 01:12] LABS: URINE APPEARANCE CLEAR; URINE BILIRUBIN NEGATIVE (NEGATIVE); URINE COLOR YELLOW; URINE GLUCOSE (UA) NEGATIVE (NEGATIVE); URINE KETONE NEGATIVE (NEGATIVE); URINE LEUK ESTERASE NEGATIVE (NEGATIVE); URINE NITRITE NEGATIVE (NEGATIVE); URINE PROTEIN NEGATIVE (NEGATIVE); URINE UROBILINOGEN 0.2 mg/dL (0.2-1.0)
[2024-09-26] MEDS ORDERED: ALBUTEROL SO4 2.5/IPRATROPIUM 0.5 INH SOL 3 ML VIAL.NEB. NEB ONE ×2 (01:37→01:49)
[2024-09-26] MEDS: ALBUTEROL SO4 2.5/IPRATROPIUM 0.5 INH SOL 3 ML VIAL.NEB. NEB ONE (01:51)
[2024-09-26] MEDS: ALBUTEROL SO4 HFA INHALER IH ONE (02:36)
[2024-09-26] MEDS ORDERED: ALBUTEROL SO4 HFA INHALER IH ONE (02:37)
== END 2024-09-26 02:43 | disposition home or self-care (01) ==
LOC: JER 00:42
PROC: 3E0F7GC Introduction of Other Therapeutic Substance into Respiratory Tract, Via Natural or Artificial Opening (ICD-10-PCS; principal; 2024-09-26)
DX: R06.02 Shortness of breath (principal); R06.2 Wheezing; R00.0 Tachycardia, unspecified; J30.2 Other seasonal allergic rhinitis
CPT/HCPCS: 81003; 93005; 93010; 99284-25

== ENCOUNTER 2025-02-20 05:50 | Inpatient (IN) | payer OTHER ==
[2025-02-20] MEDS: LACTATED RINGERS SOLUTION 1,000 ML IV SCH (06:50)
[2025-02-20 07:25] LABS: GLUCOSE,RANDOM 81.0 mg/dL (74-106); TOT PROT 7.3 g/dl (6.4-8.2)
[2025-02-20 07:26] LABS: CO2 20.0 mmol/L (21-32)
[2025-02-20 07:28] LABS: ALK PHOS 174.0 U/L (40-150)
[2025-02-20 07:31] LABS: CREATININE 0.59 mg/dL (0.55-1.3); SGOT/AST 25.0 U/L (5-34); SGPT/ALT 17.0 U/L (0-55)
[2025-02-20 08:25] LABS: ABSOLUTE IMMATURE GRANULOCYTES 0.05 x10^3/uL (0.0-0.031); BASOPHILS # 0.03 x10^3/uL (0.01-0.08); EOSINOPHIL % 2.0 % (0.7-5.8); EOSINOPHILS # 0.18 x10^3/uL (0.04-0.36); MCHC 31.7 g/dl (32.2-35.5); MEAN CELL VOLUME 74.2 fl (79.4-94.8); MEAN PLT VOLUME 12.1 fl (9.4-12.3); MONOCYTE # 0.50 x10^3/uL (0.24-0.86); MONOCYTE % 5.6 % (4.7-12.5); RDW 14.6 % (12.1-16.8)
[2025-02-20 11:14] VITALS: BMI 39.9
[2025-02-20 19:01] LABS: INR 1.02 (0.83-1.09); PROTHROMBIN TIME (PATIENT) 11.1 SEC (9.7-13.0)
[2025-02-20 19:04] LABS: ACTIVATED PTT 30.4 SECONDS (25.2-36.5)
[2025-02-20 19:43] LABS: HEPATITIS B SURFACE AG MATERN NON-REACTIVE (NONREACTIVE); SYPHILIS W/ RPR CONF NON-REACTIVE (NONREACTIVE)
[2025-02-20 19:44] LABS: HIV INTERPRETATION NEGATIVE (NEGATIVE)
[2025-02-20] MEDS: BISACODYL 10 MG SUPP.RECT PR ONE (20:20)
[2025-02-20 21:02] LABS: HCV DIAGNOSTIC IN-HOUSE W/RFLX NON-REACTIVE (NONREACTIVE)
[2025-02-20] MEDS ORDERED: BUTORPHANOL TARTRATE 2 MG/ML VIAL ONE (22:51)
[2025-02-20] MEDS: BUTORPHANOL TARTRATE 1 MG/ML VIAL IVPUSH ONE (23:09)
[2025-02-20] MEDS: PROMETHAZINE HCL 25 MG/1 ML VIAL IVPUSH ONE (23:09)
[2025-02-20] MEDS: PROMETHAZINE HCL 25 MG/1 ML VIAL IVPB ONE (23:13)
[2025-02-20 23:41] LABS: URINE APPEARANCE CLOUDY; URINE BILIRUBIN NEGATIVE (NEGATIVE); URINE COLOR YELLOW; URINE GLUCOSE (UA) NEGATIVE (NEGATIVE); URINE KETONE NEGATIVE (NEGATIVE); URINE LEUK ESTERASE 4+ (NEGATIVE); URINE NITRITE NEGATIVE (NEGATIVE); URINE PROTEIN NEGATIVE (NEGATIVE); URINE UROBILINOGEN 0.2 mg/dL (0.2-1.0)
[2025-02-20 23:42] LABS: EPI CELLS 16 /uL (0-25.1); HYALINE CASTS 0 /uL (0-3.1); URINE BACTERIA 2466 /uL (0-1359); URINE RBC 133 /uL (0-23.9); URINE WBC 1715 /uL (0-25.8)
[2025-02-21] MEDS: CEFTRIAXONE 1 GM in DEXTROSE 5%-WATER - 50 ML IVPB ONE (00:20)
[2025-02-21 11:02] LABS: ABSOLUTE IMMATURE GRANULOCYTES 0.08 x10^3/uL (0.0-0.031); BASOPHILS # 0.03 x10^3/uL (0.01-0.08); EOSINOPHIL % 0.2 % (0.7-5.8); EOSINOPHILS # 0.03 x10^3/uL (0.04-0.36); MCHC 32.2 g/dl (32.2-35.5); MEAN CELL VOLUME 73.9 fl (79.4-94.8); MEAN PLT VOLUME 11.4 fl (9.4-12.3); MONOCYTE # 1.00 x10^3/uL (0.24-0.86); MONOCYTE % 6.3 % (4.7-12.5); RDW 14.6 % (12.1-16.8)
[2025-02-21] MEDS: CITRIC ACID/SODIUM CITRATE 30 ML UNIT-DOSE CUP PO ONE ×2 (11:33→21:40)
[2025-02-21 11:34] LABS: GLUCOSE,RANDOM 84.0 mg/dL (74-106)
[2025-02-21 11:35] LABS: TOT PROT 6.6 g/dl (6.4-8.2)
[2025-02-21 11:36] LABS: CO2 20.0 mmol/L (21-32)
[2025-02-21 11:37] LABS: ALK PHOS 186.0 U/L (40-150)
[2025-02-21 11:40] LABS: CREATININE 0.53 mg/dL (0.55-1.3); SGOT/AST 19.0 U/L (5-34); SGPT/ALT 15.0 U/L (0-55)
[2025-02-21] MEDS ORDERED: LABETALOL HCL 100 MG TABLET (FP) ONE ×2 (12:45→13:09)
[2025-02-21] MEDS: LABETALOL HCL 100 MG TABLET (FP) PO SCH (13:10)
[2025-02-21] MEDS: ASPIRIN 81 MG CHEWABLE TABLETS PO SCH (14:33)
[2025-02-21] MEDS: LORATADINE 10 MG TABLET PO PRN (14:33)
[2025-02-21] MEDS ORDERED: ACETAMINOPHEN INJECTION 100 ML ONE (17:49)
[2025-02-21] MEDS: ACETAMINOPHEN 1000 MG/100 ML BAG IVPB STA (17:55)
[2025-02-21] MEDS ORDERED: FENTANYL CITRATE/PF 50 MCG/ML VIAL ONE (21:27)
[2025-02-21] MEDS ORDERED: morphine SULFATE/PF 1 MG/2 ML (2cc Syringe - QUVA) ONE (21:27)
[2025-02-21] MEDS ORDERED: ONDANSETRON 4 MG/2 ML VIAL ONE (22:18)
[2025-02-21] MEDS ORDERED: METOCLOPRAMIDE HCL INJECTION 10 MG/2 ML VIAL ONE (22:18)
[2025-02-21] MEDS ORDERED: DEXAMETHASONE SOD PHOSPHATE 4 MG/1 ML VIAL ONE (22:18)
[2025-02-21] MEDS ORDERED: OXYTOCIN 10 UNITS/ML VIAL ONE (22:21)
[2025-02-21] MEDS ORDERED: MIDAZOLAM HCL 2 MG/2 ML SINGLE DOSE VIAL ONE (22:46)
[2025-02-21] MEDS ORDERED: OXYTOCIN 20 UNITS in 0.9% NS 20 UNIT/1,000 ML INFUS.BAG IV ONE (23:44)
[2025-02-21] MEDS: OXYTOCIN 20 UNITS in 0.9% NS 20 UNIT/1,000 ML INFUS.BAG IV SCH (23:45)
[2025-02-21] MEDS ORDERED: ACETAMINOPHEN 325 MG TABLET (FP) PO PRN (23:51)
[2025-02-21] MEDS ORDERED: METHYLERGONOVINE MALEATE 0.2 MG/1 ML AMP IM PRN (23:51)
[2025-02-21] MEDS ORDERED: ONDANSETRON 4 MG/2 ML VIAL IVPUSH PRN (23:52)
[2025-02-22] MEDS ORDERED: IBUPROFEN 800 MG/8 ML IJ IVPB ONE (01:46)
[2025-02-22] MEDS: IBUPROFEN 800 MG/8 ML IJ IVPB PRN (01:50)
[2025-02-22] MEDS ORDERED: CEFAZOLIN 2 GM in DEXTROSE 5%-WATER - 50 ML IVPB SCH (02:00)
[2025-02-22] MEDS ORDERED: CEFAZOLIN SODIUM 2 GM VIAL ONE (06:05)
[2025-02-22] MEDS: CEFAZOLIN 2 GM in DEXTROSE 5%-WATER - 50 ML IVPB SCH (06:13)
[2025-02-22 06:54] LABS: MCHC 32.2 g/dl (32.2-35.5); MEAN CELL VOLUME 73.6 fl (79.4-94.8); MEAN PLT VOLUME 10.8 fl (9.4-12.3); RDW 14.4 % (12.1-16.8)
[2025-02-22 07:31] LABS: GLUCOSE,RANDOM 109.0 mg/dL (74-106); TOT PROT 5.5 g/dl (6.4-8.2)
[2025-02-22 07:32] LABS: CO2 19.0 mmol/L (21-32)
[2025-02-22 07:34] LABS: ALK PHOS 144.0 U/L (40-150)
[2025-02-22 07:36] LABS: SGOT/AST 23.0 U/L (5-34); SGPT/ALT 12.0 U/L (0-55)
[2025-02-22 07:37] LABS: CREATININE 0.54 mg/dL (0.55-1.3)
[2025-02-22] MEDS: PRENATAL VITAMINS W/ FOLIC ACID TABLET (FP) PO SCH (10:36)
[2025-02-22] MEDS: ACETAMINOPHEN 325 MG TABLET (FP) PO PRN (15:59)
[2025-02-22] MEDS: SIMETHICONE 80 MG TAB.CHEW (FP) PO PRN (15:59)
[2025-02-22] MEDS: IBUPROFEN 600 MG TABLET (FP) PO PRN (18:37)
[2025-02-22] MEDS ORDERED: BISACODYL 10 MG SUPP.RECT RC PRN (23:51)
[2025-02-23] MEDS: IBUPROFEN 600 MG TABLET (FP) PO PRN (03:00)
[2025-02-23] MEDS: SENNOSIDES/DOCUSATE COMBO (SENNA PLUS) TABLET (UD) PO PRN (21:42)
[2025-02-24 07:27] LABS: ABSOLUTE IMMATURE GRANULOCYTES 0.08 x10^3/uL (0.0-0.031); BASOPHILS # 0.04 x10^3/uL (0.01-0.08); EOSINOPHIL % 4.1 % (0.7-5.8); EOSINOPHILS # 0.39 x10^3/uL (0.04-0.36); MCHC 31.1 g/dl (32.2-35.5); MEAN CELL VOLUME 74.4 fl (79.4-94.8); MEAN PLT VOLUME 12.0 fl (9.4-12.3); MONOCYTE # 0.52 x10^3/uL (0.24-0.86); MONOCYTE % 5.4 % (4.7-12.5); RDW 14.7 % (12.1-16.8)
[2025-02-24 22:25] VITALS: PULSE 88
[2025-02-25 09:59] VITALS: BP 123/90; RESP 18; TEMP 98.1
== END 2025-02-25 13:25 | disposition home or self-care (01) | DRG 787 ==
LOC: JDEL 05:50 → JLDR 09:55 → OBSVTOIN 02-21 12:30 → J3W 02-21 18:15 → JLDR 02-21 20:45 → J3W 02-22 02:57
PROVIDERS: ADMIT Obstetrics & Gynecology; ATTEND Obstetrics & Gynecology
PROC: 10D00Z1 Extraction of Products of Conception, Low, Open Approach (ICD-10-PCS; principal; 2025-02-21)
DX: O42.913 Preterm premature rupture of membranes, unspecified as to length of time between rupture and onset of labor, third trimester (principal); O10.92 Unspecified pre-existing hypertension complicating childbirth; O99.02 Anemia complicating childbirth; D64.9 Anemia, unspecified; O34.13 Maternal care for benign tumor of corpus uteri, third trimester; D25.9 Leiomyoma of uterus, unspecified; Z3A.34 34 weeks gestation of pregnancy; O99.213 Obesity complicating pregnancy, third trimester; E66.09 Other obesity due to excess calories; Z37.0 Single live birth
CPT/HCPCS: 36415; 59025; 76819-TC; 80053; 81003; 84550; 85025; 85610; 85730; 86780; 86803; 86850; 86900; 86901; 87086; 87340; 87389; 88305-TC; 88307-TC; 94010; G0378